=== PATIENT | male | born 1985 | race Caucasian/White ===

== ENCOUNTER 2019-06-28 01:39 | Emergency (ER) | payer MEDICAID ==
[~2019-06-28] VITALS: Ht 177.8 cm; Wt 86.7 kg
[2019-06-28 01:53] VITALS: BP 165/104; Ht 177.8 cm; Wt 86.7 kg
== END 2019-06-28 02:51 | disposition home or self-care (01) ==
LOC: ED 01:39
DX: H60.92 Unspecified otitis externa, left ear (principal); E11.9 Type 2 diabetes mellitus without complications; Z79.4 Long term (current) use of insulin
CPT/HCPCS: 82962